=== PATIENT | female | born 1965 | race Caucasian/White ===

== ENCOUNTER 2016-08-28 10:25 | Emergency (ER) | payer BC ==
[2016-08-28] MEDS ORDERED: Famotidine 20 MG/2 ML SDV IVPUSH ONE (10:35)
[2016-08-28] MEDS ORDERED: Aspirin 81 MG Tab.Chew PO ONE (10:35)
--- NOTE | 2016-08-28 10:50 | EDM.PDOC ---
ED HPI GENERAL MEDICAL PROBLEM - General Stated Complaint: CHEST PAIN Time Seen by Provider: 08/28/16 10:25 Source of Information: Reports: Patient History Limitations: Reports: No Limitations - History of Present Illness INITIAL COMMENTS - FREE TEXT/NARRATIVE: History of present illness: []Patient has had substernal chest and epigastric pain for one month with intermittent dizziness and nausea. She also has left trapezius musculoskeletal pain radiating to her shoulder. Patient denies any vomiting, bloody stools, shortness of breath or syncope. Patient came in today because she had a coworker who had a heart attack to get this checked out. There has been no change in her symptoms. Review of systems: As per history of present illness and below otherwise all systems reviewed and negative. Past medical history: As per history of present illness and as reviewed below otherwise noncontributory. Surgical history: As per history of present illness and as reviewed below otherwise noncontributory. Social history: No reported history of drug or alcohol abuse. Family history: As per history of present illness and as reviewed below otherwise noncontributory. Physical exam: General: Well developed, well nourished in NAD HEENT: Atraumatic, normocephalic, pupils reactive, negative for conjunctival pallor or scleral icterus, mucous membranes moist, throat clear, neck supple, nontender, trachea midline. Lungs: Clear to auscultation, breath sounds equal bilaterally, chest nontender. Heart: S1S2, regular, negative for clicks, rubs, or JVD. Abdomen: Soft, nondistended, nontender. Negative for masses or hepatosplenomegaly. Negative for costovertebral tenderness. Pelvis: Stable nontender. Genitourinary: Deferred. Rectal: Deferred. Extremities: Atraumatic, negative for cords or calf pain. Neurovascular unremarkable. Neuro: Awake, alert, oriented. Cranial nerves II through XII unremarkable. Cerebellum unremarkable. Motor and sensory unremarkable throughout. Exam nonfocal. Diagnostics: []EKG shows no acute ischemia labs including troponin is negative Therapeutics: []Patient was given nitroglycerin with no relief, Toradol with out relief. Impression: []Chronic chest pain and known etiology follow-up PMD for further workup. Plan: []Patient began a baby aspirin daily, I recommend she take a Prilosec twice a day for the next 2 weeks to see if it alleviates her symptoms while she is awaiting an appointment by primary care. Patient is to return here if any symptoms change or worsen Definitive disposition and diagnosis as appropriate pending reevaluation and review of above. chest Pain Score (Numeric/FACES): 5 - Related Data Allergies Allergy/AdvReac Type Severity Reaction Status Date / Time No Known Allergies Allergy Verified 08/28/16 10:49 Home Meds: Home Meds . [No Known Home Meds] 08/28/16 [History] ED ROS GENERAL - Review of Systems Review Of Systems: See Below ED EXAM, GENERAL - Physical Exam Exam: See Below (See history of present illness) Course - Vital Signs Last Recorded V/S: Last Vital Signs Temp 36.4 C 08/28/16 10:25 Pulse 83 08/28/16 10:25 Resp 18 08/28/16 10:25 BP 109/59 L 08/28/16 11:45 Pulse Ox 98 08/28/16 10:25 - Orders/Labs/Meds Orders: Active Orders 24 hr Category Date Time Status EKG Documentation Completion [RC] STAT Care 08/28/16 10:34 Active Saline Lock Insert [OM.PC] Stat Oth 08/28/16 10:34 Ordered Labs: Laboratory Tests 08/28/16 08/28/16 08/28/16 Range/Units 10:41 10:41 10:41 WBC 10.63 (4.0-11.0) K/uL RBC 4.36 (4.30-5.90) M/uL Hgb 14.3 (12.0-16.0) g/dL Hct 42.1 (36.0-46.0) % MCV 96.6 (80.0-98.0) fL MCH 32.8 H (27.0-32.0) pg MCHC 34.0 (31.0-37.0) g/dL RDW Std Deviation 47.7 (28.0-62.0) fl RDW Coeff of Fabrice 13 (11.0-15.0) % Plt Count 270 (150-400) K/uL MPV 10.40 (7.40-12.00) fL Neut % (Auto) 63.0 (48.0-80.0) % Lymph % (Auto) 25.7 (16.0-40.0) % [place] % (Auto) 7.0 (0.0-15.0) % Eos % (Auto) 3.6 (0.0-7.0) % Baso % (Auto) 0.7 (0.0-1.5) % Neut # (Auto) 6.7 H (1.4-5.7) K/uL Lymph # (Auto) 2.7 H (0.6-2.4) K/uL [place] # (Auto) 0.7 (0.0-0.8) K/uL Eos # (Auto) 0.4 (0.0-0.7) K/uL Baso # (Auto) 0.1 (0.0-0.1) K/uL Nucleated RBC % 0.0 /100WBC Nucleated RBCs # 0 K/uL Sodium 138 (136-146) mmol/L Potassium 4.2 (3.5-5.1) mmol/L Chloride 105 (98-110) mmol/L Carbon Dioxide 25 (21-31) mmol/L BUN 13 (6.0-23.0) mg/dL Creatinine 0.8 (0.6-1.5) mg/dL Est Cr Clr Drug Dosing TNP Estimated GFR (MDRD) > 60.0 ml/min Glucose 147 H (60-110) mg/dL Calcium 8.8 (8.8-10.8) mg/dL Total Bilirubin 0.5 (0.1-1.5) mg/dL AST 18 (5-40) IU/L ALT 15 (8-54) IU/L Alkaline Phosphatase 70 (40-150) Troponin I < 0.10 (0.0-0.29) NG/ML Total Protein 6.7 (6.0-8.0) g/dL Albumin 4.0 (3.5-5.0) g/dL Globulin 2.7 (2.0-3.5) g/dL Albumin/Globulin Ratio 1.5 (1.3-2.8) Meds: Medications Discontinued Medications Generic Name Dose Route Start Last Admin Trade Name Freq PRN Reason Stop Dose Admin Aspirin 324 mg 08/28/16 10:35 08/28/16 11:10 Aspirin PO 08/28/16 10:36 324 mg ONETIME ONE Administration Famotidine 20 mg 08/28/16 10:35 08/28/16 11:10 Pepcid IVPUSH 08/28/16 10:36 20 mg ONETIME ONE Administration Ketorolac Tromethamine 30 mg 08/28/16 11:31 08/28/16 11:44 Toradol IVPUSH 08/28/16 11:32 30 mg ONETIME ONE Administration Nitroglycerin 0.4 mg 08/28/16 10:35 08/28/16 11:45 Nitrostat SL 08/28/16 10:46 0.4 mg Q5M PRN Administration Chest Pain Departure - Departure Time of Disposition: 12:49 Disposition: Home, Self-Care 01 Condition: Good Clinical Impression: Chronic chest pain Additional Instructions: The following information is given to patients seen in the emergency department who are being discharged to home. This information is to outline your options for follow-up care. We provide all patients seen in our emergency department with a follow-up referral. The need for follow-up, as well as the timing and circumstances, are variable depending upon the specifics of your emergency department visit. If you don't have a primary care physician on staff, we will provide you with a referral. We always advise you to contact your personal physician following an emergency department visit to inform them of the circumstance of the visit and for follow-up with them and/or the need for any referrals to a consulting specialist. The emergency department will also refer you to a specialist when appropriate. This referral assures that you have the opportunity for follow-up care with a specialist. All of these measure are taken in an effort to provide you with optimal care, which includes your follow-up. Under all circumstances we always encourage you to contact your private physician who remains a resource for coordinating your care. When calling for follow-up care, please make the office aware that this follow-up is from your recent emergency room visit. If for any reason you are refused follow-up, please contact the [facility] Emergency Department at and asked to speak to the emergency department charge nurse. Take one baby aspirin daily. Prilosec twice a day next 2 weeks. Call primary care physician for follow-up and further workup including stress testing. [facility] [address] [place] [phone] - My Orders Last 24 Hours: My Active Orders 08/28/16 10:34 EKG Documentation Completion [RC] STAT Saline Lock Insert [OM.PC] Stat - Assessment/Plan Last 24 Hours: My Active Orders 08/28/16 10:34 EKG Documentation Completion [RC] STAT Saline Lock Insert [OM.PC] Stat
[2016-08-28 11:11] LABS: CHLORIDE,CL 105 mmol/L (98-110); SODIUM,NA 138 mmol/L (136-146)
[2016-08-28] MEDS: Nitroglycerin 0.4 MG Tab.SL SL PRN ×3 (11:21→11:45)
[2016-08-28] MEDS ORDERED: Ketorolac 30 MG/ML SDV IVPUSH ONE (11:31)
--- NOTE | 2016-08-28 12:42 | CR ---
EXAMINATION: Portable chest radiograph. HISTORY: Shortness of breath. FINDINGS: The trachea is midline. The cardiomediastinal silhouette is within normal limits. No pulmonary infil trates, effusions or pneumothorax. Osseous structures appear unremarkable. IMPRESSION: No acute cardiopulmonary process.
[2016-08-28 13:16] VITALS: BP 125/73
== END 2016-08-28 13:17 | disposition home or self-care (01) ==
LOC: MW.ED 10:25
DX: R07.2 Precordial pain (principal)
CPT/HCPCS: 36415; 71010; 80053; 84484; 85025; 93005; 96374; 99285; A9270; J1885; 99284

== ENCOUNTER 2018-09-23 06:08 | Emergency (ER) | payer BC ==
[2018-09-23] MEDS ORDERED: Sodium Chloride 0.9% 10 ML Syringe FLUSH PRN (06:43)
[2018-09-23] MEDS ORDERED: Sodium Chloride 0.9% 2.5 ML Syringe FLUSH PRN (06:43)
[2018-09-23] MEDS ORDERED: Pantoprazole 40 MG Vial IVPUSH ONE (06:44)
[2018-09-23] MEDS ORDERED: Ondansetron 4 MG/2 ML SDV IVPUSH ONE (06:44)
[2018-09-23] MEDS ORDERED: Sodium Chloride 0.9% 1,000 ML IV ONE (06:44)
[2018-09-23] MEDS ORDERED: Sodium Chloride 0.9% 20 ML ONE (06:53)
[2018-09-23 07:19] LABS: CARBON DIOXIDE,CO2 28.9 mmol/L (21.0-32.0); POTASSIUM,K 5.3 mmol/L (3.5-5.1)
--- NOTE | 2018-09-23 07:31 | EDM.PDOC ---
ED HPI GENERAL MEDICAL PROBLEM - General Chief Complaint: Abdominal Pain Stated Complaint: ABDOMINAL PAIN Time Seen by Provider: 09/23/18 07:00 Source of Information: Reports: Patient History Limitations: Reports: No Limitations - History of Present Illness INITIAL COMMENTS - FREE TEXT/NARRATIVE: History of present illness: []Patient started having stabbing upper abdominal pain at 2 AM. She started having nonbloody vomiting and diarrhea throughout the night. He should states she is a drinker. Review of systems: As per history of present illness and below otherwise all systems reviewed and negative. Past medical history: As per history of present illness and as reviewed below otherwise noncontributory. Surgical history: As per history of present illness and as reviewed below otherwise noncontributory. Social history: No reported history of drug or alcohol abuse. Family history: As per history of present illness and as reviewed below otherwise noncontributory. Physical exam: General: Well developed, well nourished in NAD HEENT: Atraumatic, normocephalic, pupils reactive, negative for conjunctival pallor or scleral icterus, mucous membranes moist, throat clear, neck supple, nontender, trachea midline. Lungs: Clear to auscultation, breath sounds equal bilaterally, chest nontender. Heart: S1S2, regular, negative for clicks, rubs, or JVD. Abdomen: NABS, Soft, nondistended, mild tenderness diffusely without rebound or guarding. Negative for masses or hepatosplenomegaly. Negative for costovertebral tenderness. Pelvis: Stable nontender. Genitourinary: Deferred. Rectal: Deferred. Extremities: Atraumatic, negative for cords or calf pain. Neurovascular unremarkable. Neuro: Awake, alert, oriented. Cranial nerves II through XII unremarkable. Cerebellum unremarkable. Motor and sensory unremarkable throughout. Exam nonfocal. Skin:warm and dry Diagnostics: CBC, chemistry, lipase and UA , CT abdomen pelvis Therapeutics: IV hydration, Protonix and Zofran ED Course: Stable Impression: Enteritis Prescriptions: none Plan: Take meds as directed, follow up with your primary care physician, return to ER if symptoms worsen or change. Definitive disposition and diagnosis as appropriate pending reevaluation and review of above. abdomen Pain Score (Numeric/FACES): 10 - Related Data Allergies Allergy/AdvReac Type Severity Reaction Status Date / Time No Known Allergies Allergy Verified 09/23/18 06:39 Home Meds: Home Meds . [No Known Home Meds] 08/28/16 [History] Past Medical History - Past Health History Medical/Surgical History: Denies Medical/Surgical History Cardiovascular History: Reports: Hypertension Social & Family History - Family History Family Medical History: Noncontributory - Tobacco Use Smoking Status *Q: Current Every Day Smoker Years of Tobacco use: 30 Packs/Tins Daily: 1 - Recreational Drug Use Recreational Drug Use: No ED ROS GENERAL - Review of Systems Review Of Systems: See Below ED EXAM, GI/ABD - Physical Exam Exam: See Below Course - Vital Signs Last Recorded V/S: Last Vital Signs Temp 97.7 F 09/23/18 06:15 Pulse 72 09/23/18 09:34 Resp 16 09/23/18 09:34 BP 140/72 09/23/18 09:34 Pulse Ox 97 09/23/18 09:34 - Orders/Labs/Meds Orders: Active Orders 24 hr Category Date Time Status EKG Documentation Completion [RC] STAT Care 09/23/18 06:44 Active Sodium Chloride 0.9% [Saline Flush] Med 09/23/18 06:43 Active 10 ml FLUSH ASDIRECTED PRN Sodium Chloride 0.9% [Saline Flush] Med 09/23/18 06:43 Active 2.5 ml FLUSH ASDIRECTED PRN Saline Lock Insert [OM.PC] Stat Oth 09/23/18 06:43 Ordered Medication Orders Sodium Chloride (Saline Flush) 10 ml FLUSH ASDIRECTED PRN PRN Reason: Keep Vein Open Sodium Chloride (Saline Flush) 2.5 ml FLUSH ASDIRECTED PRN PRN Reason: Keep Vein Open Labs: Laboratory Tests 09/23/18 09/23/18 09/23/18 Range/Units 06:20 06:45 06:45 WBC 12.97 H (4.0-11.0) K/uL RBC 5.11 (4.30-5.90) M/uL Hgb 17.2 H (12.0-16.0) g/dL Hct 49.8 H (36.0-46.0) % MCV 97.5 (80.0-98.0) fL MCH 33.7 H (27.0-32.0) pg MCHC 34.5 (31.0-37.0) g/dL RDW Std Deviation 47.7 (28.0-62.0) fl RDW Coeff of Fabrice 13 (11.0-15.0) % Plt Count 259 (150-400) K/uL MPV 10.40 (7.40-12.00) fL Neut % (Auto) 80.5 H (48.0-80.0) % Lymph % (Auto) 9.3 L (16.0-40.0) % [place] % (Auto) 6.4 (0.0-15.0) % Eos % (Auto) 3.5 (0.0-7.0) % Baso % (Auto) 0.3 (0.0-1.5) % Neut # (Auto) 10.4 H (1.4-5.7) K/uL Lymph # (Auto) 1.2 (0.6-2.4) K/uL [place] # (Auto) 0.8 (0.0-0.8) K/uL Eos # (Auto) 0.5 (0.0-0.7) K/uL Baso # (Auto) 0.0 (0.0-0.1) K/uL Nucleated RBC % 0.0 /100WBC Nucleated RBCs # 0 K/uL Sodium 142 (136-145) mmol/L Potassium 5.3 H (3.5-5.1) mmol/L Chloride 106 (98-107) mmol/L Carbon Dioxide 28.9 (21.0-32.0) mmol/L BUN 19 H (7.0-18.0) mg/dL Creatinine 1.0 (0.6-1.0) mg/dL Est Cr Clr Drug Dosing 52.58 mL/min Estimated GFR (MDRD) 57.6 ml/min Glucose 138 H (74-106) mg/dL Calcium 9.7 (8.5-10.1) mg/dL Total Bilirubin 0.5 (0.2-1.0) mg/dL AST 11 L (15-37) IU/L ALT 15 (14-63) IU/L Alkaline Phosphatase 84 (46-116) U/L Total Protein 7.2 (6.4-8.2) g/dL Albumin 3.8 (3.4-5.0) g/dL Globulin 3.4 (2.6-4.0) g/dL Albumin/Globulin Ratio 1.1 (0.9-1.6) Lipase 101 (73-393) U/L Urine Color YELLOW Urine Appearance CLEAR Urine pH 5.0 (5.0-8.0) Ur Specific [place] >= 1.030 (1.001-1.035) Urine Protein NEGATIVE (NEGATIVE) mg/dL Urine Glucose (UA) NEGATIVE (NEGATIVE) mg/dL Urine Ketones TRACE H (NEGATIVE) mg/dL Urine Occult Blood TRACE-INTACT H (NEGATIVE) Urine Nitrite NEGATIVE (NEGATIVE) Urine Bilirubin SMALL H (NEGATIVE) Urine Ictotest NEGATIVE Urine Urobilinogen 0.2 (<2.0) EU/dL Ur Leukocyte Esterase NEGATIVE (NEGATIVE) Urine RBC 0-1 (0-2/HPF) Urine WBC 0-1 (0-5/HPF) Ur Epithelial Cells FEW (NONE-FEW) Urine Bacteria FEW (NEGATIVE) Urine Mucus MODERATE (NONE-MOD) Meds: Medications Generic Name Dose Route Start Last Admin Trade Name Ricardo PRN Reason Stop Dose Admin Sodium Chloride 10 ml 09/23/18 06:43 Saline Flush FLUSH ASDIRECTED PRN Keep Vein Open Sodium Chloride 2.5 ml 09/23/18 06:43 Saline Flush FLUSH ASDIRECTED PRN Keep Vein Open Discontinued Medications Generic Name Dose Route Start Last Admin Trade Name Ricardo PRN Reason Stop Dose Admin Sodium Chloride 1,000 mls @ 999 mls/hr 09/23/18 06:44 09/23/18 06:58 Normal Saline IV 09/23/18 07:44 999 mls/hr STAT ONE Administration Sodium Chloride Confirm 09/23/18 06:53 09/23/18 06:58 Normal Saline Administered 09/23/18 06:54 20 mls/hr Dose Administration 20 mls @ as directed .ROUTE .STK-MED ONE Ondansetron HCl 4 mg 09/23/18 06:44 09/23/18 06:58 Zofran IVPUSH 09/23/18 06:45 4 mg ONETIME ONE Administration Pantoprazole Sodium 80 mg 09/23/18 06:44 09/23/18 06:59 Protonix Iv IVPUSH 09/23/18 06:45 80 mg .BOLUS ONE Administration Departure - Departure Time of Disposition: 09:58 Disposition: Home, Self-Care 01 Condition: Good Clinical Impression: Enteritis - Discharge Information *PRESCRIPTION DRUG MONITORING PROGRAM REVIEWED*: No *COPY OF PRESCRIPTION DRUG MONITORING REPORT IN PATIENT ALEXANDER: No Referrals: Mahednra Jacobs MD [Primary Care Provider] - Forms: ED Department Discharge Additional Instructions: The following information is given to patients seen in the emergency department who are being discharged to home. This information is to outline your options for follow-up care. We provide all patients seen in our emergency department with a follow-up referral. The need for follow-up, as well as the timing and circumstances, are variable depending upon the specifics of your emergency department visit. If you don't have a primary care physician on staff, we will provide you with a referral. We always advise you to contact your personal physician following an emergency department visit to inform them of the circumstance of the visit and for follow-up with them and/or the need for any referrals to a consulting specialist. The emergency department will also refer you to a specialist when appropriate. This referral assures that you have the opportunity for follow-up care with a specialist. All of these measure are taken in an effort to provide you with optimal care, which includes your follow-up. Under all circumstances we always encourage you to contact your private physician who remains a resource for coordinating your care. When calling for follow-up care, please make the office aware that this follow-up is from your recent emergency room visit. If for any reason you are refused follow-up, please contact the [facility] Emergency Department at and asked to speak to the emergency department charge nurse. Take meds as directed, follow up with your primary care physician, return to ER if symptoms worsen or change. [facility] [address] [place] [id number]
--- NOTE | 2018-09-23 09:41 | CT ---
INDICATION : Abdominal pain TECHNIQUE : CT Scan of the abdomen and pelvis. IV contrast COMPARISON : No comparison FINDINGS: GI tract: Normal caliber. Surgery with previous appendectomy. The stool volume is upper normal. Some increased fluid in the distal small bowel but no obvious signs for transition or obstruction. Pelvis: Small amount of free fluid. Urinary bladder is normal. No adenopathy. Miscellaneous abdomen: Liver, spleen, pancreas, adrenal glands, and kidneys are unremarkable. No gallbladder calcification or biliary dilatation. No enlarged retroperitoneal lymph nodes. Scattered plaques in the abdominal aorta. Lung bases and skeletal: No significant abnormality. Incidental disc degeneration at L5-S1. IMPRESSION: 1. Increased fluid in the distal small bowel. This is nonspecific but could be seen with enteritis. 2. No signs of obstruction or focal mesenteric inflammation. 3. Nonspecific small volume of free fluid in the pelvis. Please note that all CT scans at this facility use dose modulation, iterative reconstruction, and/or weight-based dosing when appropriate to reduce radiation dose to as low as reasonably achievable. Dictated by Everton Mccarthy MD @ Sep 23 2018 9:40AM Signed by Dr. Everton Mccarthy @ Sep 23 2018 9:40AM
[2018-09-23 10:05] VITALS: BP 129/72; PULSE 65
== END 2018-09-23 10:07 | disposition home or self-care (01) ==
LOC: MW.ED 06:08
DX: K52.9 Noninfective gastroenteritis and colitis, unspecified (principal); F17.210 Nicotine dependence, cigarettes, uncomplicated
CPT/HCPCS: 36415; 74177; 80053; 81001; 83690; 85025; 93005; 96361; 96374; 96375; 99284; C9113; J2405; J7040

== ENCOUNTER 2020-01-26 11:16 | Emergency (ER) | payer BC ==
[2020-01-26] MEDS ORDERED: Ketorolac 15 MG/ML SDV IVPUSH ONE (11:43)
[2020-01-26] MEDS ORDERED: Ondansetron 4 MG Tab.DIS PO ONE (11:43)
[2020-01-26 12:12] LABS: BLOOD UREA NITROGEN,BUN 15 mg/dL (7.0-18.0); CARBON DIOXIDE,CO2 26.8 mmol/L (21.0-32.0); CHLORIDE,CL 102 mmol/L (98-107); GLUCOSE RANDOM 96 mg/dL (74-106); POTASSIUM,K 3.8 mmol/L (3.5-5.1); SODIUM,NA 139 mmol/L (136-145)
--- NOTE | 2020-01-26 12:53 | CR ---
Indication: Chest pain Comparison: Single view chest August 28, 2016 Technique: Single AP view chest Findings: There is hyperinflation and chronic interstitial change. There are increased interstitial markings from comparison exam without pneumothorax or pleural effusion. The cardiomediastinal silhouette is within normal limits. The bony thorax is grossly intact. Impression: Hyperinflation, chronic interstitial changes with increasing interstitial markings likely representing pulmonary edema. Dictated by Braeden Banda MD @ Jan 26 2020 12:49PM Signed by Dr. Braeden Banda @ Jan 26 2020 12:51PM
--- NOTE | 2020-01-26 13:31 | EDM.PDOC ---
ED HPI GENERAL MEDICAL PROBLEM - General Chief Complaint: Chest Pain Stated Complaint: SHORT OF BREATH Time Seen by Provider: 01/26/20 11:23 - History of Present Illness INITIAL COMMENTS - FREE TEXT/NARRATIVE: CHIEF COMPLAINT(S): Chest pain HISTORY OF PRESENT ILLNESS: This is a 54-year-old woman in with a past medical history of hypertension and tobacco use disorder who comes to the emergency department with a chief complaint of chest pain. The patient states that approximately at 3:30 AM she started to experience left-sided chest pain along her left rib. She describes the pain as achy and 6 out of 10. She states that the pain is intermittent and worsens with touch, movement, and deep breaths. She denies any shortness of breath or cough but states that she does feel a little nauseous. She states that she did not have any diaphoresis. She denies any radiation of this pain to her arm or neck. She denies any relieving symptoms other than laying still. She has not yet tried any medications. She denies any fevers, chills, exposure to Covid, family history of early onset CAD or personal history of CAD. She denies any recent travel or recent surgery. She denies any history of clots. She denies any family history of clotting disorders. She states that this feels similar to the chest pain she has had in the past. REVIEW OF SYSTEMS: Constitutional: Denies fever, chills. Eyes: Denies eye pain Ears, Nose, Mouth, & Throat: Denies earache Cardiovascular: Positive for chest pain on the left side Respiratory: Denies shortness of breath Gastrointestinal: Positive for nausea. Denies vomiting, diarrhea, hematochezia Genitourinary: Denies hematuria Skin:Denies a rash Neurological: Denies blurred vision or numbness, tingling, weakness Psychiatric: Denies depression PAST MEDICAL HISTORY: As per history of present illness and as reviewed below otherwise noncontributory. SURGICAL HISTORY: As per history of present illness and as reviewed below otherwise noncontributory. LMP: Had a hysterectomy SOCIAL HISTORY: As per history of present illness and as reviewed below otherwise noncontributory. FAMILY HISTORY: As per history of present illness and as reviewed below otherwise noncontributory. EXAMINATION OF ORGAN SYSTEMS/BODY AREAS: Constitutional: Blood pressure was 166/69, heart rate 96, respiratory rate 18 with an oxygen saturation 96% on room air. Temperature 36.7 General: Anxious appearing woman who is in no acute distress Psychiatric: Appears anxious. Eyes: No scleral icterus or conjunctival erythema ENMT: Moist mucous membranes. No pharyngeal erythema Cardiovascular: Regular, rate, and rhythm. No gallops, murmurs, or rubs. Bilateral upper extremity pulses symmetric and intact. No peripheral edema. No JVD. Point tenderness along the left lateral chest wall. No skin changes. Respiratory: Lungs clear to auscultation bilaterally. No wheezes, rales, or rhonchi. Gastrointestinal: Soft, non-tender, non-distended. Normoactive bowel sounds Genitourinary: No suprapubic tenderness Musculoskeletal: Normal range of motion. Skin: No lesions or abrasions. Neurological: Alert, GCS 15 MEDICAL DECISION MAKING AND COURSE IN THE ED WITH INTERPRETATION/REVIEW OF DIAG NOSTIC STUDIES: This is a 54-year-old woman with a past medical history of tobacco use disorder and hypertension who comes to the emergency department with left-sided chest wall pain which I do believe is musculoskeletal in nature however given her age we will obtain a cardiac work-up. Given it has been multiple hours since the chest pain that started we will obtain one troponin. We did obtain an EKG which did not reveal any acute signs of ischemia. We will provide the patient with Toradol and Zofran for pain relief. We will place the patient on cardiac monitoring and pulse oximetry. Twelve-lead EKG interpreted by myself. Normal sinus rhythm at a rate of 93 beats per minute. Normal axis. NJ interval is 191 ms. QRS duration is [address] segments are normal without elevations or depressions. No Q waves present. Hypertrophy not noted. No changes demonstrated from prior EKG dated 09/23/2018. Interpretation: Normal sinus rhythm Heart Score History: Slightly or Non-Suspicious (0) ECG: Normal (0) Age: 45-64 (1) Risk Factors: 1-2 (1) Initial Troponin: </= normal limit (0) Total Score: 2 -> Low Risk Laboratory: CBC reveals a mildly elevated white count of 11 and an elevated hemoglobin and hematocrit with a hemoglobin of 16.6 hematocrit of 48. BMP is unremarkable. Troponin is negative. Magnesium is normal. The radiological images were viewed by myself along with reading the report from the radiologist. Chest x-ray reveals mild hyperinflation with chronic interstitial changes with some increased interstitial markings. Radiologist did read that it could repre sent pulmonary edema. I did reevaluate the patient and discussed the results with this patient. At this time she denies any orthopnea, lower extremity edema, abdominal distention. The patient's lung examination is clear without any wheezing, rales, or rhonchi. I do not believe the chest x-ray is consistent with pulmonary edema or any evidence of heart failure. I did discuss with the patient that I do believe her pain is secondary to costochondritis versus rib contusion. I discussed the use of Tylenol and Motrin and [id number] lidocaine cream for pain relief. I discussed that I would be providing her with an incentive spirometer in order to take full deep breaths. She is to follow-up with her primary care physician. She is to return for any new or worsening symptoms. She was amenable to discharge at this time and had no further questions. DISPOSITION: The patient was discharged home in stable condition. The patient will follow up with primary care physician within 1 CONDITION: Fair PROCEDURES: None FINAL IMPRESSION(S)/DIAGNOSES: 1. Acute left-sided chest wall pain likely secondary to rib contusion versus costochondral pain Vic Lerma M.D. Chest Pain Score (Numeric/FACES): 6 - Related Data Allergies Allergy/AdvReac Type Severity Reaction Status Date / Time aspirin Allergy Nausea and Verified 01/26/20 12:22 Vomiting Home Meds: Home Meds . [No Known Home Meds] 08/28/16 [History] Past Medical History - Past Health History Medical/Surgical History: Denies Medical/Surgical History Cardiovascular History: Reports: Hypertension - Infectious Disease History Infectious Disease History: Reports: Chicken Pox, Influenza Social & Family History - Family History Family Medical History: No Pertinent Family History - Tobacco Use Tobacco Use Status *Q: Current Every Day Tobacco User Years of Tobacco use: 30 Packs/Tins Daily: 1 - Caffeine Use Caffeine Use: Reports: Coffee - Alcohol Use Number of Drinks Per Day: 2 - Recreational Drug Use Recreational Drug Use: No ED ROS GENERAL - Review of Systems Review Of Systems: See Below ED EXAM, GENERAL - Physical Exam Exam: See Below Course - Vital Signs Last Recorded V/S: Last Vital Signs Temp 36.8 C 01/26/20 13:47 Pulse 75 01/26/20 13:47 Resp 16 01/26/20 13:47 BP 143/68 H 01/26/20 13:47 Pulse Ox 96 01/26/20 13:47 - Orders/Labs/Meds Labs: Laboratory Tests 01/26/20 01/26/20 Range/Units 11:30 11:30 WBC 11.09 H (4.0-11.0) K/uL RBC 4.89 (4.30-5.90) M/uL Hgb 16.6 H (12.0-16.0) g/dL Hct 48.0 H (36.0-46.0) % MCV 98.2 H (80.0-98.0) fL MCH 33.9 H (27.0-32.0) pg MCHC 34.6 (31.0-37.0) g/dL RDW Std Deviation 47.1 (28.0-62.0) fl RDW Coeff of Fabrice 13 (11.0-15.0) % Plt Count 259 (150-400) K/uL MPV 11.00 (7.40-12.00) fL Neut % (Auto) 65.7 (48.0-80.0) % Lymph % (Auto) 24.2 (16.0-40.0) % Boyd % (Auto) 7.5 (0.0-15.0) % Eos % (Auto) 2.1 (0.0-7.0) % Baso % (Auto) 0.5 (0.0-1.5) % Neut # (Auto) 7.3 H (1.4-5.7) K/uL Lymph # (Auto) 2.7 H (0.6-2.4) K/uL Boyd # (Auto) 0.8 (0.0-0.8) K/uL Eos # (Auto) 0.2 (0.0-0.7) K/uL Baso # (Auto) 0.1 (0.0-0.1) K/uL Nucleated RBC % 0.0 /100WBC Nucleated RBCs # 0 K/uL Sodium 139 (136-145) mmol/L Potassium 3.8 (3.5-5.1) mmol/L Chloride 102 (98-107) mmol/L Carbon Dioxide 26.8 (21.0-32.0) mmol/L BUN 15 (7.0-18.0) mg/dL Creatinine 0.8 (0.6-1.0) mg/dL Est Cr Clr Drug Dosing TNP Estimated GFR (MDRD) > 60.0 ml/min Glucose 96 (74-106) mg/dL Calcium 9.6 (8.5-10.1) mg/dL Magnesium 1.9 (1.8-2.4) mg/dL Troponin I < 0.050 (0.000-0.056) ng/mL Meds: Medications Discontinued Medications Generic Name Dose Route Start Last Admin Trade Name Freq PRN Reason Stop Dose Admin Ketorolac Tromethamine 15 mg 01/26/20 11:43 01/26/20 12:22 Toradol IVPUSH 01/26/20 11:44 15 mg ONETIME ONE Administration Ondansetron HCl 4 mg 01/26/20 11:43 01/26/20 12:22 Zofran Odt PO 01/26/20 11:44 4 mg ONETIME ONE Administration Departure - Departure Time of Disposition: 13:29 Disposition: Home, Self-Care 01 Condition: Fair Clinical Impression: Costochondral chest pain - Discharge Information *PRESCRIPTION DRUG MONITORING PROGRAM REVIEWED*: No *COPY OF PRESCRIPTION DRUG MONITORING REPORT IN PATIENT ALEXANDER: No Instructions: Chest Wall Pain, [id number] Referrals: PCP,None [Primary Care Provider] - Forms: ED Department Discharge Additional Instructions: The patient is informed of any results of their evaluation and diagnostic workup and all questions are answered. They are given discharge instructions and return precautions. The patient is stable for discharge. The patient states they understand and agree with the plan and that they will return if their symptoms get worse or if they have any new concerns. The following information is given to patients seen in the emergency department who are being discharged to home. This information is to outline your options for follow-up care. We provide all patients seen in our emergency department with a follow-up referral. The need for follow-up, as well as the timing and circumstances, are variable depending upon the specifics of your emergency department visit. If you don't have a primary care physician on staff, we will provide you with a referral. We always advise you to contact your personal physician following an emergency department visit to inform them of the circumstance of the visit and for follow-up with them and/or the need for any referrals to a consulting specialist. The emergency department will also refer you to a specialist when appropriate. This referral assures that you have the opportunity for follow-up care with a specialist. All of these measure are taken in an effort to provide you with optimal care, which includes your follow-up. Under all circumstances we always encourage you to contact your private physician who remains a resource for coordinating your care. When calling for follow-up care, please make the office aware that this follow-up is from your recent emergency room visit. If for any reason you are refused follow-up, please contact the [facility] Emergency Department at and asked to speak to the emergency department charge nurse. Your evaluated today on an emergent basis. At this time I do believe your pain is secondary to a rib contusion versus costochondritis. I recommend using ibuprofen and lidocaine cream to the affected area. Please continue to do deep breathing exercises as there is a risk of increased pneumonia if you do not take deep breaths. An incentive spirometer will be helpful. We did provide this to you. Please follow-up with your primary care physician within 1 week. If you are to have any new or worsening symptoms such as worsening chest pain, numbness, passing out, shortness of breath, or swelling please return to the emergency department. [facility] [address] [place] [address] [place] [address] Sepsis Event Note (ED) - Evaluation Sepsis Screening Result: No Definite Risk - Focused Exam Vital Signs: Vital Signs Temp Pulse Resp BP Pulse Ox 01/26/20 13:47 36.8 C 75 16 143/68 H 96 01/26/20 12:30 65 155/73 H 01/26/20 11:17 36.7 C 96 18 166/69 H 96
[2020-01-26 14:04] VITALS: BP 143/68; PULSE 75
== END 2020-01-26 13:51 | disposition home or self-care (01) ==
LOC: MW.ED 11:16
DX: R07.1 Chest pain on breathing (principal); I10 Essential (primary) hypertension; F17.210 Nicotine dependence, cigarettes, uncomplicated; Z88.6 Allergy status to analgesic agent
CPT/HCPCS: 71045; 80048; 83735; 84484; 85025; 93005; 96374; 99285; A9270; J1885; 93010; 99284

== ENCOUNTER 2022-04-12 23:38 | Emergency (ER) | payer BC ==
[2022-04-13] MEDS ORDERED: Ketorolac 30 MG/ML SDV IVPUSH ONE (00:14)
[2022-04-13 01:00] LABS: CARBON DIOXIDE,CO2 27.3 mmol/L (21.0-32.0); POTASSIUM,K 3.5 mmol/L (3.5-5.1)
[2022-04-13] MEDS ORDERED: Iopamidol 755 MG/ML 500 ML Multipack Bottle IVPUSH STA (01:28)
[2022-04-13 03:20] VITALS: BP 117/64; PULSE 77
== END 2022-04-13 03:26 | disposition home or self-care (01) ==
LOC: MW.ED 23:38
DX: R10.13 Epigastric pain (principal); I10 Essential (primary) hypertension; Z79.899 Other long term (current) drug therapy; Z72.0 Tobacco use; Z91.048 Other nonmedicinal substance allergy status; Z91.040 Latex allergy status; Z88.8 Allergy status to other drugs, medicaments and biological substances; Z90.710 Acquired absence of both cervix and uterus
CPT/HCPCS: 36415; 74177; 76705; 80053; 83690; 85025; 93005; 96374; 99284; J1885; Q9967

== ENCOUNTER 2022-06-27 23:38 | Emergency (ER) | payer BC ==
[2022-06-28] MEDS ORDERED: Sodium Chloride 0.9% 10 ML Syringe FLUSH PRN (00:35)
[2022-06-28] MEDS ORDERED: Sodium Chloride 0.9% 2.5 ML Syringe FLUSH PRN (00:35)
[2022-06-28] MEDS ORDERED: Pantoprazole 40 MG in Sodium Chloride 0.9% 10 ML IVPUSH ONE (00:36)
[2022-06-28] MEDS: Aspirin 81 MG Tab.Chew PO ONE ×2 (00:40→00:45)
[2022-06-28 00:41] LABS: BASOPHILS ABSOLUTE AUTO 0.1 K/uL (0.0-0.1); EOSINOPHILS ABSOLUTE AUTO 0.5 K/uL (0.0-0.7); HEMATOCRIT 40.9 % (36.0-46.0); HEMOGLOBIN 14.3 g/dL (12.0-16.0); LYMPHOCYTES ABSOLUTE AUTO 3.3 K/uL (0.6-2.4); LYMPHOCYTES PERCENT AUTO 39.9 % (16.0-40.0); MEAN CORPUSCULAR HEMOGLOBIN 33.7 pg (27.0-32.0); MEAN CORPUSCULAR VOLUME 96.5 fL (80.0-98.0); MONOCYTES ABSOLUTE AUTO 0.5 K/uL (0.0-0.8); MONOCYTES PERCENT AUTO 5.5 % (0.0-15.0); NEUTROPHILS ABSOLUTE AUTO 3.9 K/uL (1.4-5.7); NEUTROPHILS PERCENT AUTO 47.6 % (48.0-80.0); NRBC ABSOLUTE 0 K/uL; PLATELET COUNT,PLT 281 K/uL (150-400); RED BLOOD CELL COUNT 4.24 M/uL (4.30-5.90); WHITE BLOOD CELL COUNT,WBC 8.18 K/uL (4.0-11.0)
[2022-06-28 00:57] LABS: A/G RATIO 1.1 (0.9-1.6); ALBUMIN 3.4 g/dL (3.4-5.0); BILIRUBIN TOTAL 0.2 mg/dL (0.2-1.0); CALCIUM 8.6 mg/dL (8.5-10.1); CARBON DIOXIDE,CO2 26.6 mmol/L (21.0-32.0); CREATININE 0.7 mg/dL (0.6-1.0); EST CRCL DRUG DOSING (CG) 72.47 mL/min; POTASSIUM,K 3.7 mmol/L (3.5-5.1); PROTEIN TOTAL,TP 6.6 g/dL (6.4-8.2)
[2022-06-28 02:38] VITALS: BP 117/67; PULSE 64
== END 2022-06-28 02:35 | disposition home or self-care (01) ==
LOC: MW.ED 23:38
DX: R07.89 Other chest pain (principal); F10.929 Alcohol use, unspecified with intoxication, unspecified; I10 Essential (primary) hypertension; Y90.7 Blood alcohol level of 200-239 mg/100 ml; Z72.0 Tobacco use; Z91.048 Other nonmedicinal substance allergy status; Z88.8 Allergy status to other drugs, medicaments and biological substances; Z91.040 Latex allergy status; Z91.018 Allergy to other foods; Z79.899 Other long term (current) drug therapy
CPT/HCPCS: 36415; 71045; 80053; 80307; 83690; 84484; 85025; 85379; 93005; 96374; 99285; C9113; J3490; 93010; 99284; A9270-GY